=== PATIENT | female | born 1960 | race Hispanic/Latino ===

== ENCOUNTER 2017-07-10 07:52 | Outpatient (CLI) | payer OTHER ==
--- NOTE | 2017-07-10 14:31 | NM ---
RADIONUCLIDE GASTRIC EMPTYING SCAN: HISTORY: A 57-year-old female with early satiety and abdominal pain. TECHNIQUE: A gastric emptying scan was performed following the oral administration of 2 mCi Technetium 99m sulfu r colloid in scrambled eggs. FINDINGS: There is 67% emptying of the ingested gastric contents at 1 hours, a 92% emptying at 2 hours, 97% emp tying at 3 and 4 hours. The calculated gastric emptying half-time measures 55 minutes. IMPRESSION: Normal exam. POS: [facility]
== END 2017-07-10 07:53 | disposition home or self-care (01) ==
LOC: NM 07:52
PROVIDERS: ATTEND Internal Medicine Nephrology
DX: R68.81 Early satiety (principal)
CPT/HCPCS: 78264; A9541

== ENCOUNTER 2021-11-09 10:59 | Outpatient (CLI) | payer BC | END 2021-11-09 11:00 | disposition home or self-care (01) | LOC: BICMAMMO 10:59 | PROVIDERS: ATTEND Family Medicine | DX: Z12.31 Encounter for screening mammogram for malignant neoplasm of breast (principal) | CPT/HCPCS: 77063; 77067 ==

== ENCOUNTER 2022-06-27 17:38 | Outpatient (CLI) | payer BC | END 2022-06-27 17:39 | disposition home or self-care (01) | LOC: SCSRAD 17:38 | PROVIDERS: ATTEND Family Medicine | DX: M25.551 Pain in right hip (principal) ==